=== PATIENT | female | born 1955 | race Caucasian/White ===

== ENCOUNTER 2023-03-12 10:23 | Emergency (ER) | payer MEDICARE, SELFPAY ==
[2023-03-12] VITALS (7 sets, daily range): BP systolic 122–159; BP diastolic 53–84; PULSE 79–91; RESP 20; TEMP 37; O2SAT 96–97; BMI 25.9
--- NOTE | 2023-03-12 10:59 | CT_ITS ---
PROCEDURE INFORMATION: Exam: CT Head Without Contrast Exam date and time: 03/12/2023 11:11 AM Age: 67 years old Clinical indication: Pain and injury or trauma; Fall; Concussion/head injury; Headache; Additional info: Fall backwards, head injury TECHNIQUE: Imaging protocol: Computed tomography of the head without contrast. Radiation optimization: All CT scans at this facility use at least one of these dose optimization techniques: automated exposure control; mA and/or kV adjustment per patient size (includes targeted exams where dose is matched to clinical indication); or iterative reconstruction. REPORTING DATA: Count of CT and Cardiac NM exams in prior 12 months: This patient has received 0 known CTs and 0 known cardiac nuclear medicine studies in the 12 months prior to the current study. COMPARISON: No relevant prior studies available. FINDINGS: Brain: There are multiple small hypodensities in the right basal ganglia, consistent with remote lacunar infarctions/prominent perivascular spaces. There is no evidence of acute intracranial hemorrhage, extra-axial collection or locoregional mass effect. There are scattered hypodensities in the periventricular and subcortical white matter. The appearance is nonspecific, but most likely represents chronic small vessel disease in a person of this age Cerebral ventricles: The ventricles, sulci and cisterns are normal in size and configuration for patient's age. No hydrocephalus or midline structure shift Pituitary gland and sella: Sellar/parasellar structures, craniocervical junction and orbits are unremarkable Paranasal sinuses: Visualized sinuses are unremarkable. No fluid levels. Mastoid air cells: Visualized mastoid air cells are well aerated. Orbital cavities: Postsurgical changes in the right globe Bones/joints: No calvarial fracture Soft tissues: Unremarkable. IMPRESSION: No acute intracranial abnormality. No calvarial fracture.
--- NOTE | 2023-03-12 10:59 | CT_ITS ---
PROCEDURE INFORMATION: Exam: CT Cervical Spine Without Contrast Exam date and time: 03/12/2023 11:13 AM Age: 67 years old Clinical indication: Pain and injury or trauma; Fall; Concussion/head injury; Neck pain; Additional info: Fall backwards, head injury TECHNIQUE: Imaging protocol: Computed tomography of the cervical spine without contrast. Radiation optimization: All CT scans at this facility use at least one of these dose optimization techniques: automated exposure control; mA and/or kV adjustment per patient size (includes targeted exams where dose is matched to clinical indication); or iterative reconstruction. REPORTING DATA: Count of CT and Cardiac NM exams in prior 12 months: This patient has received 0 known CTs and 0 known cardiac nuclear medicine studies in the 12 months prior to the current study. COMPARISON: CT HEAD/BRAIN WO CON 03/12/2023 11:11 AM FINDINGS: Bones/joints: Vertebral alignment is maintained. There is preservation of vertebral body heights. Facet joints are aligned. Odontoid process is intact. Atlantoaxial interval maintained. No acute fracture. Uncovertebral and facet arthropathy result in varying degrees of neural foraminal narrowing at multiple levels. Paranasal sinuses: Postsurgical changes in the right maxillary sinus Orbital cavities: Postsurgical changes in the right globe are noted Lungs: Lung apices are normal. Soft tissues: Prevertebral and paravertebral soft tissues are maintained IMPRESSION: No acute fracture. No traumatic subluxation.
--- NOTE | 2023-03-12 11:03 | [facility].EDGENADL ---
Discharge Plan Disposition Patient Disposition: Home, Self-Care Condition: Good Referrals Follow up/Referrals: Isaiah Fernandez [Primary Care Provider] - See instructions Activity Restrictions/Add. Instructions Additional Instructions/Restrictions: You were evaluated in the emergency department today. Your minerva need to come out in 10 to 14 days. Keep your wound clean and dry. Do not submerge in any water. Return for any new or worsening symptoms or signs of infection, such as significant increase in pain, pus draining from the wound, increasing redness and swelling, change in mental status, or other concerns. Tylenol and ibuprofen at home as needed for pain. Clinical Impressions Clinical Impression: Acute strain of neck muscle Laceration of scalp Qualifiers: Encounter type: initial encounter Qualified Code(s): S01.01XA - Laceration without foreign body of scalp, initial encounter Instructions Patient Instructions: DI for Laceration Repair, DI for Neck Pain Discharge ED Provider: Lydia Duong General Adult HPI General Chief complaint: Wound/Laceration Stated complaint: [id number], lac on back of head Time Seen by Provider: 03/12/23 10:32 Mode of Arrival: Ambulatory Source of Information: Patient Limitations: No Limitations Description of Symptoms (Recalled from ER Triage Doc. by RN): pt to ed c/o laceration to the back of the head. pt states she was swatting at a spider and fell into the corner of the wall. pt reports taking 81mg of aspirin daily. pt denies LOC. pt denies any pain. History of Present Illness HPI narrative: This patient is a 67-year-old female with a history of GA on aspirin presenting to the emergency department for evaluation with concern for head injury. Patient reports that she was trying to kill a spider, when it fell into her face. She fell backwards onto her butt while trying to kill it, and then she hit her head on the corner of the wall. She did not lose consciousness. She complains of pain at the site of a head laceration and upper neck pain, but she denies any other concerns, such as vision changes, numbness, tingling unilateral weakness, chest pain, pelvic pain, or other concerns. She is ambulatory without issues. She is unsure when her last tetanus shot was. She was well prior to the fall. Related Data Allergies Allergy/AdvReac Type Severity Reaction Status Date / Time Codeine Allergy Mild NA-NAUSEA/V Uncoded 12/19/17 15:32 OMITING PFSH PFS Disclaimer: The information contained in this section may have been updated after the patient was seen, as this information can be updated by other users. Social History Smoking Status: Never smoker alcohol intake: never current occupational status: retired Travel in the last 8 weeks: None ROS Obtained: Yes All systems reviewed & no additional complaints except as documented Physical Exam General General appearance: alert and in no apparent distress Head Head exam: other (6 cm linear scalp laceration vertically on the posterior scalp, wound is hemostatic. No significant bony stepoffs or deformities) Eye Eye exam: Present normal appearance, PERRL and EOMI ENT ENT exam: Present normal exam, normal oropharynx, mucous membranes moist and normal external ear exam Neck Neck exam: Present full ROM, trachea midline and tenderness (Paraspinal tenderness to palpation with no significant midline tenderness, step-offs, or deformities.) Chest Chest inspection: Present normal inspection and symmetric chest wall rise; Absent tenderness Respiratory Respiratory exam: Present normal lung sounds bilaterally; Absent respiratory distress, wheezes, stridor or accessory muscle use Cardiovascular Cardiovascular exam: Present regular rate and normal rhythm Abdominal Exam Abdominal exam: Present soft; Absent distention, tenderness or guarding Extremities Exam Extremities exam: Present normal inspection, full ROM and normal capillary refill;
--- NOTE | 2023-03-12 11:15 | PC.NURSE ---
pt arrived back to room from ct
== END 2023-03-12 14:01 | disposition home or self-care (01) ==
PROVIDERS: Emergency Provider Emergency Medicine; PCP Pediatrics
DX: S01.01XA Laceration without foreign body of scalp, initial encounter (principal); S16.1XXA Strain of muscle, fascia and tendon at neck level, initial encounter; Z79.82 Long term (current) use of aspirin; W18.30XA Fall on same level, unspecified, initial encounter; I25.10 Atherosclerotic heart disease of native coronary artery without angina pectoris; Z23 Encounter for immunization
CPT/HCPCS: 70450; 72125; 96372; 99285